=== PATIENT | female | born 1980 | race Two or more races ===

== ENCOUNTER 2017-10-25 14:11 | Emergency (ER) | payer SELFPAY ==
[~2017-10-25] VITALS: Ht 170.2 cm; Wt 76.0 kg
[2017-10-25 14:34] VITALS: BP 106/66
== END 2017-10-25 21:00 | disposition left against medical advice (07) ==
LOC: ER 14:11
DX: Z53.21 Procedure and treatment not carried out due to patient leaving prior to being seen by health care provider (principal)
CPT/HCPCS: 93005